=== PATIENT | female | born 1995 | race Caucasian/White ===

== ENCOUNTER → 2020-12-02 | Outpatient (CLI) | payer OTHER | LOC: HEART 5 11-10 11:30 | DX: R00.2 Palpitations (principal) | CPT/HCPCS: 93306 ==

== ENCOUNTER 2022-02-16 17:19 | Outpatient (CLI) | payer OTHER ==
[2022-02-17] MEDS ORDERED: PHENERGAN 25 MG25 M1 PO (09:04)
== END 2022-02-17 09:07 | disposition home or self-care (01) ==
LOC: GENOP 17:19
DX: O99.282 Endocrine, nutritional and metabolic diseases complicating pregnancy, second trimester (principal); E86.0 Dehydration; O21.2 Late vomiting of pregnancy; Z88.2 Allergy status to sulfonamides; Z88.8 Allergy status to other drugs, medicaments and biological substances; Z3A.23 23 weeks gestation of pregnancy
CPT/HCPCS: 81001; 96360; 96361; 96367; C9113; J2405; J2550; J7120